=== PATIENT | female | born 1960 | race Asian ===

== ENCOUNTER 2016-11-17 12:04 | Day surgery (SDC) | payer OTHER ==
[~2016-11-17] VITALS: Ht 157.5 cm; Wt 58.1 kg
[~2016-11-17 12:04] MED LIST: 0.9% Sodium Chloride 1,000 ML IV SCH; BENZ200C44 PO; CHOL10008 PO; GUAI473S22 PO; HYDR12.55 PO; LISI10TA PO; METF500T4 PO; Sodium Chloride LOK Flush 10 mL Syringe IV PRN; fentaNYL-PF 50 mCg/mL 2 mL Inj IVPUSH PRN
[2016-11-17 12:42] VITALS: BP 159/98; PULSE 102; RESP 16; O2SAT 100
[2016-11-17] MEDS ORDERED: LOSA25TA21 PO (12:47)
--- NOTE | 2016-11-17 13:33 | PCM.ENDCOL ---
Colonoscopy Date of Service: Nov 17, 2016 Physician Ayan Joshi MD Pre Procedure Diagnosis: Screening Post Procedure Dx & Findings: Polyps hemorrhoids Procedure Colonoscopy PROCEDURE IN DETAIL: Prep adequate Withdrawal time 10 minutes After unremarkable rectal examination the Olympus video colonoscope was inserted patient's anal canal and was advanced to cecum. Landmarks were identified including the ileocecal valve and appendiceal orifice. Scope was withdrawn systematically. Visualized colonic mucosa showed healthy shiny mucosa with normal healthy-appearing vasculature. In the transverse colon, There was a 2 mm polyp which was removed completely using cold snare. In the sigmoid colon there was a 3 mm polyp which was removed completely using cold snare. In the rectum retroflexion was done which showed hemorrhoids. Anal canal was inspected carefully on the way out and hemorrhoids noted. Impression Polyps 2 status post complete removal Hemorrhoids Recommendation Repeat colonoscopy in 5 years Presedation Assessment Risks and Benefits Informed consent was obtained from the patient after all risks and benefits including but not limited to drug reaction, infection, pain, bleeding, perforation, as well as alternatives were discussed. Patient monitoring Continuous pulse oximetry, cardiac monitoring, blood pressure monitoring, IV access, and oxygen at 2L per nasal cannula. Periprocedural Fentanyl: Fentanyl 125mcg Incrementally Midazolam: Midazolam 5mg Incrementally Complications There were no periprocedural complications identified. Post Procedure Plan Post Procedure Recommendations 1. Restrict activities today. 2. Resume normal activities in the morning. 3. Resume medications. 4. Patient informed of normal post procedure side effects as bloating, drowsiness, blood streaking in the stool. 5. average risk CRCS. If colon polyps come back as: -Hyperplastic- can repeat colonoscopy in 10 years -Tubular adenoma- repeat colonoscopy in 5 years -Tubulovillous/villous adenoma- repeat colonoscopy in 3 years -If any dysplasia- return to clinic as soon as possible 6. Please don't hesitate to call me with any questions. Ayan Joshi MD Nov 17, 2016 13:33
[2016-11-17 13:35] VITALS: BP 131/76; PULSE 80; RESP 16; O2SAT 97
[2016-11-17 13:45] VITALS: BP 105/70; PULSE 86; RESP 16; O2SAT 97
[2016-11-17 13:55] VITALS: BP 115/80; PULSE 77; RESP 16; O2SAT 98
--- NOTE | 2016-11-19 11:06 | PATH ---
SURGICAL PATHOLOGY Attending Physician:Ayan Joshi M.D. CASE STATUS: Signed Out PATIENT NAME: ROWENA LEON PID: [id number] : 1960 DATE COLLECTED:11/17/2016 00:00 SPECIMEN: 1: Colon, Biopsy 2: Colon, Biopsy CLINICAL HISTORY: 1). TRANSVERSE POLYP X1 2). SIGMOID POLYP X1 FINAL DIAGNOSIS: 1.TRANSVERSE COLON POLYP: CHANGES CONSISTENT WITH SESSILE SERRATED ADENOMA. 2.SIGMOID COLON POLYP: HYPERPLASTIC POLYP. ICD10 CODE D12.3 GROSS DESCRIPTION: The specimen is received in two formalin filled containers labeled with the patient's name. 1). The specimen is sublabeled "transverse polyp x1" and consists of 3 portions of tissue which aggregate to 0.3-0.3 x 0.2 CM. The specimen is entirely submitted in cassette 1A. 2). The specimen is sublabeled "sigmoid polyp x1" and consists of a 0.6-0.4 x 0.3 CM portion of tissue which is entirely submitted in cassette 2A. 11/18/2016 [facility] MICRO DESCRIPTION: See diagnosis. ICD-9 CODES: CPT CODES: 1: 28558 2: 29502 Electronically Signed Out Jeison Millan MD [facility] Pathology [facility] [address], [place] [address] Technical component performed at [facility], [facility] [address], [address]
== END 2016-11-17 23:59 | disposition home or self-care (01) ==
LOC: END 12:04
PROVIDERS: ATTEND Internal Medicine
DX: Z12.11 Encounter for screening for malignant neoplasm of colon (principal); D12.3 Benign neoplasm of transverse colon; K63.5 Polyp of colon; K64.9 Unspecified hemorrhoids; I10 Essential (primary) hypertension; E11.9 Type 2 diabetes mellitus without complications; Z79.84 Long term (current) use of oral hypoglycemic drugs
CPT/HCPCS: 45385; 99153; G0500; J2250; J3010; J7030